=== PATIENT | male | born 1955 | race Caucasian/White ===

== ENCOUNTER 2020-08-05 07:22 | Emergency (ER) | payer BC ==
--- NOTE | 2020-08-05 08:34 | EDM.PDOC ---
ED HPI GENERAL MEDICAL PROBLEM - General Chief Complaint: Lower Extremity Injury/Pain Stated Complaint: DISCOLORATION/ LT KNEE Time Seen by Provider: 08/05/20 07:37 Source of Information: Reports: Patient, RN Notes Reviewed - History of Present Illness INITIAL COMMENTS - FREE TEXT/NARRATIVE: 65 yr old male noticed hematoma below L knee cap about a week ago. Does not recall any injury. Has localized discomfort and pain worse with certain types of motion. area of bruising has been spreading out the last few days. Worried about possible fx. Takes baby ASA, no other blood thinners. Left Knee Pain Score (Numeric/FACES): 7 - Related Data Allergies Allergy/AdvReac Type Severity Reaction Status Date / Time rivaroxaban [From Xarelto] Allergy Severe Rash Verified 08/05/20 07:39 Home Meds: Home Meds Aspirin [Halfprin] 81 mg PO DAILY 01/31/14 [History] Levothyroxine 112 mcg PO DAILY 01/31/14 [History] Metoprolol Succinate 25 mg PO DAILY 01/31/14 [History] Amiodarone [Cordarone] 100 mg PO DAILY 08/05/20 [History] Past Medical History Cardiovascular History: Reports: Afib Social & Family History - Tobacco Use Tobacco Use Status *Q: Never Tobacco User Second Hand Smoke Exposure: No - Caffeine Use Caffeine Use: Reports: None - Recreational Drug Use Recreational Drug Use: No Review of Systems - Review of Systems Review Of Systems: See Below Constitutional: Reports: No Symptoms Eyes: Reports: No Symptoms Mouth/Throat: Reports: No Symptoms Respiratory: Denies: Shortness of Breath Cardiovascular: Denies: Chest Pain GI/Abdominal: Denies: Abdominal Pain, Nausea, Vomiting Musculoskeletal: Reports: Leg Pain Neurological: Reports: No Symptoms ED EXAM, GENERAL - Physical Exam Exam: See Below General Appearance: Alert, No Apparent Distress Head: Atraumatic. No: Facial Swelling Neck: Supple Respiratory/Chest: No Respiratory Distress, Lungs Clear, Normal Breath Sounds Cardiovascular: Regular Rate, Rhythm Extremities: Other (Area of bruising and sweling just below L knee cap, quite tender, with surrounding bruising upper ant. leg, calf nontender, not warm or erythematous) Course - Vital Signs Last Recorded V/S: Last Vital Signs Temp 98.0 F 08/05/20 07:34 Pulse 60 08/05/20 07:34 Resp 18 08/05/20 07:34 BP 155/92 H 08/05/20 07:34 Pulse Ox 98 08/05/20 07:34 - Orders/Labs/Meds Orders: Active Orders 24 hr Category Date Time Status Knee Min 4V Lt [CR] Stat Exams 08/05/20 07:48 Taken Tibia Fibula Lt [CR] Stat Exams 08/05/20 07:48 Taken Durable Medical Equipment for Discharge [DME for Oth 08/05/20 08:32 Ordered Discharge] [COMM] Stat - Re-Assessments/Exams Free Text/Narrative Re-Assessment/Exam: 08/05/20 08:45 no fx. Departure - Departure Time of Disposition: 08:32 Disposition: Home, Self-Care 01 Condition: Fair Clinical Impression: Hematoma - Discharge Information Referrals: PCP,None [Primary Care Provider] - Forms: ED Department Discharge Additional Instructions: Yariel wrap, rest and elevate leg as much as possible, ice packs several times feroz ly as needed for swelling. This will likely take about another 10 to 14 days to resolved. Have rechecked if symptoms worsening in any way. Sepsis Event Note (ED) - Evaluation Sepsis Screening Result: No Definite Risk - Focused Exam Vital Signs: Vital Signs Temp Pulse Resp BP Pulse Ox 08/05/20 07:34 98.0 F 60 18 155/92 H 98 - My Orders Last 24 Hours: My Active Orders 08/05/20 07:48 Knee Min 4V Lt [CR] Stat Tibia Fibula Lt [CR] Stat 08/05/20 08:32 Durable Medical Equipment for Discharge [DME for Discharge] [COMM] Stat - Assessment/Plan Last 24 Hours: My Active Orders 08/05/20 07:48 Knee Min 4V Lt [CR] Stat Tibia Fibula Lt [CR] Stat 08/05/20 08:32 Durable Medical Equipment for Discharge [DME for Discharge] [COMM] Stat
--- NOTE | 2020-08-05 09:18 | CR ---
Left tibia and fibula: AP and lateral views of the left tibia and fibula were obtained. Comparison: No previous studies are available. Plantar spur is noted. Ankle mortise is symmetric. No acute fracture or other bony abnormality is appreciated. Impression: 1. Plantar spur. 2. No acute bony abnormality is identified on left tibia and fibula study. Diagnostic code #2
--- NOTE | 2020-08-05 09:20 | CR ---
Left knee: 4 views of the left knee were obtained. Comparison: No prior knee study is available. Medial joint space is not well seen but is grossly maintained. Lateral joint space is maintained. No joint effusion is seen. No acute fracture or other bony abnormality is appreciated. Soft tissue swelling is noted anteriorly. Impression: 1. Soft tissue swelling. 2. No definite acute osseous abnormality is appreciated. Diagnostic code #2
== END 2020-08-05 08:45 | disposition home or self-care (01) ==
LOC: JD.ED 07:22
DX: M79.81 Nontraumatic hematoma of soft tissue (principal); Z88.8 Allergy status to other drugs, medicaments and biological substances; Z79.82 Long term (current) use of aspirin; Z79.899 Other long term (current) drug therapy
CPT/HCPCS: 73564-26-LT; 73564-LT; 73590-26-LT; 73590-LT; 99283